=== PATIENT | female | born 1970 | race Asian ===

== ENCOUNTER 2016-06-27 12:22 | Emergency (ER) | payer OTHER ==
[~2016-06-27] VITALS: Ht 154.9 cm; Wt 50.0 kg
[2016-06-27 12:47] VITALS: BP 146/97
[2016-06-27] MEDS ORDERED: DEPOP150I IM (13:02)
== END 2016-06-27 16:40 | disposition left against medical advice (07) ==
LOC: EMS 12:27
DX: L29.9 Pruritus, unspecified (principal); F17.210 Nicotine dependence, cigarettes, uncomplicated; Z53.21 Procedure and treatment not carried out due to patient leaving prior to being seen by health care provider